=== PATIENT | female | born 1945 | race Caucasian/White ===

== ENCOUNTER 2019-12-05 15:56 | Outpatient (CLI) | payer MEDICARE, SELFPAY ==
--- NOTE | ~2019-12-05 | XR_ITS ---
EXAMINATION: XR lumbar spine 6V w bending DATE: 12/05/2019 16:37 INDICATION: Left-sided low back pain. TECHNIQUE: 7 views of lumbar spine including flexion and extension views were obtained. COMPARISON: None. FINDINGS: There is 18 degrees levoscoliosis of lumbar spine. There is 5 mm retrolisthesis of L1 on L2 and L2 on L3 and 5 mm anterolisthesis of L5 on S1. The spine is hypomobile with flexion or extension . Vertebral body heights are normal. There is moderately decreased disc height at L1-L2, severely dec reased disc height at L2-L3, mildly decreased disc height at L3-L4, severely decreased disc height at L4-L5, and mildly decreased disc height at L5-S1. 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 Ther e are surgical clips in the abdomen. IMPRESSION: 1. Severe lumbar spondylosis. 2. Lumbar levoscoliosis. Reviewed, dictated and finalized at location A. FORCE CONSULTANT
== END 2019-12-05 15:57 | disposition home or self-care (01) ==
PROVIDERS: PCP Family Medicine; Visit Provider Nurse Practitioner Family
DX: M47.896 Other spondylosis, lumbar region (principal)
CPT/HCPCS: 72114

== ENCOUNTER 2020-08-30 11:44 | Outpatient (CLI) | payer MEDICARE, SELFPAY ==
--- NOTE | ~2020-08-30 | MR_ITS ---
. EXAMINATION: MR lumbar spine wo con DATE: 08/30/2020 12:36 INDICATION: Low back pain. TECHNIQUE: Magnetic resonance imaging (MRI) of the lumbar spine was performed without intravenous con trast. Sequences included sagittal T2-weighted FSE, sagittal T2-weighted FS FSE, sagittal T1-weighted FSE, and axial T2-weighted FSE. COMPARISON: Lumbar spine radiographs 12/05/2019 FINDINGS: There is 9 degrees levocurvature of lumbar spine. There is 4 mm retrolisthesis of L1 on L2 and L2 on L3 and 5 mm anterolisthesis of L5 on S1. There is mild chronic anterior wedging of T11 and T12 vertebral bodies. There is mildly decreased disc height at T12-L1, severely decreased disc height at L1-L2 and L2-L3, moderately decreased disc height at L3-L4, and severely decreased disc height at L4-L5 and L5-S1. The distal spinal cord signal intensity is normal. The conus medullaris is at T12. There is a 2.3 cm cyst in left kidney. The following disc levels are specifically discussed: L1-L2: The disc is bulging and has an annular fissure. There is severe right and moderate left facet joint osteoarthritis. There is mild bilateral neural foraminal stenosis. There is mild central canal stenosis. L2-L3: The disc is bulging and has an annular fissure. There is moderate bilateral facet joint osteoa rthritis. There is mild right and moderate left neural foraminal stenosis. There is mild central corin l stenosis. L3-L4: The disc is bulging and has an annular fissure. There is severe right and moderate left facet joint osteoarthritis. There is mild bilateral neural foraminal stenosis. There is mild central canal stenosis. L4-L5: The disc is bulging and has an annular fissure. There is severe bilateral facet joint osteoart hritis. There is moderate bilateral neural foraminal stenosis. There is mild central canal stenosis. L5-S1: The disc is bulging and has an annular fissure. There is severe bilateral facet joint osteoart hritis. There is mild right and moderate left neural foraminal stenosis. There is mild central canal stenosis. IMPRESSION: 1. Severe lumbar spondylosis. Reviewed, dictated and finalized at location A.
== END 2020-08-30 11:45 ==
PROVIDERS: PCP Family Medicine; Visit Provider Nurse Practitioner Family
DX: M47.896 Other spondylosis, lumbar region (principal)
CPT/HCPCS: 72148

== ENCOUNTER 2020-10-24 15:13 | Outpatient (CLI) | payer MEDICARE, SELFPAY ==
--- NOTE | ~2020-10-24 | XR_ITS ---
EXAMINATION: XR lumbar spine 2-3V DATE: 10/24/2020 15:49 INDICATION: Low back pain. TECHNIQUE: 3 views of lumbar spine were obtained. COMPARISON: Lumbar spine MRI 08/30/2020 FINDINGS: There is 11 degrees levoscoliosis of lumbar spine. There is 4 mm retrolisthesis of L1 on L2 and L2 on L3 and 5 mm anterolisthesis of L5 on S1. There is mild chronic anterior wedging of T11 destinee tebral body. There is mildly decreased disc height at T12-L1, severely decreased disc height at L1-L2 and L2-L3, moderately decreased disc height at L3-L4, and severely decreased disc height at L4-L5 an d L5-S1. There is multilevel severe facet joint osteoarthritis. There are surgical clips in the pelvi s. IMPRESSION: 1. Severe lumbar spondylosis. 2. Lumbar levoscoliosis. Reviewed, dictated and finalized at location A. [employer] FOREMAN
== END 2020-10-24 15:14 ==
PROVIDERS: PCP Family Medicine; Visit Provider Nurse Practitioner Family
DX: M47.896 Other spondylosis, lumbar region (principal)
CPT/HCPCS: 72100

== ENCOUNTER → 2022-07-22 10:51 | Outpatient (CLI) | payer MEDICARE, SELFPAY ==
--- NOTE | ~2022-07-22 | XR_ITS ---
XR shoulder LT min 2V DATE: 07/22/2022 11:20 INDICATION: Left shoulder pain after a fall 2 months ago TECHNIQUE: 4 views COMPARISON: None FINDINGS: Osteopenia. There is degenerative spurring at the left acromioclavicular joint. No fracture or dislocation, periosteal reaction or bone destruction nor any significant abnormal left shoulder s oft tissue calcification is noted. Left Port-A-Cath catheter is noted. Large hiatal hernia. Aortic arch calcification. Degenerative spurring of the thoracic spine. IMPRESSION: Osteopenia Degenerative spurring at the left acromioclavicular joint Reviewed, dictated and finalized at location B.
== END ==
PROVIDERS: PCP Family Medicine; Visit Provider Family Medicine
DX: M85.812 Other specified disorders of bone density and structure, left shoulder (principal)
CPT/HCPCS: 73030

== ENCOUNTER 2022-08-15 11:19 | Outpatient (CLI) | payer MEDICARE, SELFPAY ==
[2022-08-15 19:52] LABS: Basophils Absolute Auto 0.1 K/mm3 (0.0-0.1); Basophils Percent Auto 1.2 % (0.2-1.2); Eosinophils Absolute Auto 0.3 K/mm3 (0-0.3); Eosinophils Percent Auto 5.2 % (0-4.4); Hematocrit 37.1 % (37.0-47.0); Hemoglobin 11.9 g/dL (12.0-15.0); Immature Granulocyte Absolute 0.02 K/mm3 (0.00-0.031); Immature Granulocyte Percent A 0.4 % (0-0.5); Lymphocytes Absolute Auto 0.92 K/mm3 (0.9-3.2); Lymphocytes Percent Auto 16.4 % (18.3-44.2); Mean Corpuscular HGB Conc 32.1 g/dl (32-36); Mean Corpuscular Hemoglobin 31.9 pg (26-34); Mean Corpuscular Volume 99.5 fl (80-100); Mean Platelet Volume 10.1 fl (7.4-10.4); Monocytes Absolute Auto 0.4 K/mm3 (0.1-0.6); Monocytes Percent Auto 7.5 % (2.6-8.5); Neutrophils Absolute Auto 3.9 K/mm3 (1.3-6.7); Neutrophils Percent Auto 69.3 % (45.5-73.1); Platelet Count Result 175 k/mm3 (150-375); Red Blood Count 3.73 M/mm3 (4.2-5.4); Red Cell Distribution Width 14.3 % (11.5-14.5); White Blood Count 5.6 K/mm3 (4.5-10.0)
[2022-08-15 20:49] LABS: Erythrocyte Sedimentation Rate 33 mm/hr (0-20)
[2022-08-15 22:50] LABS: Alanine Aminotransferase 11 U/L (6-35); Alkaline Phosphatase 86 U/L (38-126); Anion Gap 10 mmol/L (8-16); Aspartate Amino Transferase 24 U/L (14-36); Bilirubin,Total 0.7 mg/dL (0.2-1.3); Blood Urea Nitrogen 13 mg/dL (7-17); Calcium 9.5 mg/dL (8.4-10.2); Carbon Dioxide 24 mmol/L (22-30); Chloride 105 mmol/L (98-107); Cholesterol 185 mg/dL (0-200); Estimated Glomerular Filt Rate > 60; Glucose 94 mg/dL (65-110); HDL Direct 49 mg/dL; Sodium 139 mmol/L (137-145); Triglycerides 77 mg/dL (<150)
[2022-08-15 22:52] LABS: Potassium 3.7 mmol/L (3.4-5.0)
[2022-08-15 23:03] LABS: LDL Cholesterol Direct 103 mg/dL
[2022-08-18 11:49] LABS: Vitamin D 25 Hydroxy 21.6 ng/mL
== END 2022-08-15 11:20 | disposition home or self-care (01) ==
PROVIDERS: PCP Family Medicine; Visit Provider Family Medicine
DX: M25.50 Pain in unspecified joint (principal); E55.9 Vitamin D deficiency, unspecified; I10 Essential (primary) hypertension; Z13.220 Encounter for screening for lipoid disorders; I48.20 Chronic atrial fibrillation, unspecified
CPT/HCPCS: 36415; 80053; 80061; 82306; 84443; 85025; 85652; 86038

== ENCOUNTER 2023-10-06 12:18 | Outpatient (CLI) | payer MEDICARE, SELFPAY ==
--- NOTE | ~2023-10-06 | XR_ITS ---
Clinical Indication: Cough PA and lateral views of the chest: Comparison: None Findings: Left-sided Mediport is in satisfactory position.. Calcified pulmonary granulomas are noted. No consolidation or pleural effusion otherwise. Cardiomediastinal silhouette is within normal limit s. Probable calcified right paratracheal lymph node. Osseous structures are intact. Moderate to large hiatal hernia present. Impression: No acute pulmonary abnormality. Moderate to large hiatal hernia. Left-sided Mediport. Evidence of prior granulomatous disease. Reviewed, dictated and finalized at location M. [employer] SALES EXECUTIVE Impression: No acute pulmonary abnormality. Moderate to large hiatal hernia. Left-sided Mediport. Evidence of prior granulomatous disease.
== END 2023-10-06 12:19 ==
PROVIDERS: PCP Family Medicine; Visit Provider Family Medicine
DX: R05.9 Cough, unspecified (principal); I10 Essential (primary) hypertension; I48.91 Unspecified atrial fibrillation; C43.9 Malignant melanoma of skin, unspecified; C79.9 Secondary malignant neoplasm of unspecified site; K44.9 Diaphragmatic hernia without obstruction or gangrene
CPT/HCPCS: 71046